=== PATIENT | female | born 1945 | race Caucasian/White ===

== ENCOUNTER 2022-09-25 02:02 | Emergency (ER) | payer MEDICARE, OTHER ==
[2022-09-25] MEDS ORDERED: Acetaminophen 500 MG TAB ONE (02:32)
[2022-09-25] MEDS ORDERED: Ibuprofen 200 MG TAB ONE (02:32)
== END 2022-09-25 03:51 | disposition home or self-care (01) ==
LOC: ERS 02:02
DX: M46.1 Sacroiliitis, not elsewhere classified (principal); E11.9 Type 2 diabetes mellitus without complications; I10 Essential (primary) hypertension; W18.30XA Fall on same level, unspecified, initial encounter; Z87.891 Personal history of nicotine dependence; Z79.82 Long term (current) use of aspirin; Z79.84 Long term (current) use of oral hypoglycemic drugs; Z79.899 Other long term (current) drug therapy

== ENCOUNTER 2023-10-24 14:40 | Inpatient (IN) | payer OTHER ==
[2023-10-24] MEDS ORDERED: Ondansetron PF 4 MG/2 ML Vial IVP PRN ×2 (15:39)
[2023-10-24] MEDS: Morphine 4 MG/ML VIAL SLOW IVP SCH (15:45)
[2023-10-24] MEDS: Haloperidol Lactate 5 MG/ML VIAL SLOW IVP SCH (15:46)
[2023-10-24] MEDS: Scopolamine 1 mg/72 hour Patch TOP SCH (15:57)
[2023-10-24] MEDS: Lorazepam 2 MG/ML VIAL SLOW IVP PRN ×2 (16:52→20:28)
[2023-10-24] MEDS: Morphine 4 MG/ML VIAL SLOW IVP PRN ×2 (17:45→21:30)
[2023-10-24] MEDS: Haloperidol Lactate 5 MG/ML VIAL SLOW IVP PRN (20:29)
[2023-10-25 07:15] VITALS: BMI 32.2
[2023-10-26] MEDS: Acetaminophen 650 MG Suppository PR SCH (14:17)
[2023-10-26 20:44] VITALS: BP 137/72
[2023-10-26] MEDS: Acetaminophen 650 MG Suppository PR PRN (21:11)
[2023-10-27] MEDS: Scopolamine 1 mg/72 hour Patch TOP SCH (10:17)
[2023-10-27] MEDS: Ketorolac Tromethamine 30 MG (1 mL) VIAL IVP PRN (10:20)
[2023-10-27 11:48] VITALS: TEMP 98.7
[2023-10-27] MEDS: Glycopyrrolate 0.4 MG/ 2 ML VIAL SLOW IVP PRN ×2 (12:16→18:47)
== END 2023-10-27 19:10 | disposition expired | DRG 951 ==
LOC: CCU 14:40 → T4-B 18:49
PROVIDERS: ADMIT Internal Medicine Nephrology; ATTEND Internal Medicine Nephrology
DX: Z51.5 Encounter for palliative care (principal); A41.9 Sepsis, unspecified organism; G93.41 Metabolic encephalopathy; J18.9 Pneumonia, unspecified organism; U07.1 COVID-19; N39.0 Urinary tract infection, site not specified; N17.9 Acute kidney failure, unspecified; E11.9 Type 2 diabetes mellitus without complications; I10 Essential (primary) hypertension; Z98.890 Other specified postprocedural states; Z79.82 Long term (current) use of aspirin; Z79.899 Other long term (current) drug therapy; Z79.84 Long term (current) use of oral hypoglycemic drugs; Z90.710 Acquired absence of both cervix and uterus
CPT/HCPCS: 94760; J1630; J1885; J2060; J2272